=== PATIENT | female | born 1990 | race Caucasian/White ===

== ENCOUNTER 2018-08-26 13:52 | Emergency (ER) | payer OTHER ==
[~2018-08-26] VITALS: Wt 78.0 kg
[2018-08-26] MEDS ORDERED: CYCL10TA7 PO (16:17)
[2018-08-26] MEDS ORDERED: NAPR-688 PO (16:17)
--- NOTE | 2018-08-26 16:22 | ERD ---
ER Documentation Chief Complaint Chief Complaint RIGHT SIDED FACIAL PAIN X 2 DAYS HPI 28-year-old from presents for right-sided face pain x2 days. She states that she has 8 out of 10 pain when she opens her jaw. She states that she has 0 out of 10 pain without movement. The pain is described as a sharp pain, nonr adiating, worsening with movement and eating. She denies any fevers or chills. The pain is constant when she moves her jaw. No prior similar symptoms. She denies chest pain or shortness of breath. No significant past medical history. No other modifying factors noted. No treatments tried at home. ROS All systems reviewed and are negative except as per history of present illness. Medications Home Meds Active Scripts Cyclobenzaprine Hcl* (Cyclobenzaprine Hcl*) 10 Mg Tablet, 10 MG PO QHS for pain, #15 TAB Prov:KRYSTIAN CLANCY 08/26/18 Naproxen* (Naproxen*) 500 Mg Tablet, 500 MG PO BID PRN for PAIN, #30 TAB Prov:KRYSTIAN CLANCY DO 08/26/18 Allergies Allergies: Coded Allergies: No Known Allergy (Unverified , 08/26/18) PMhx/Soc History of Surgery: Yes (Hernia repair x2) Anesthesia Reaction: No Hx Alcohol Use: No Hx Substance Use: No Hx Tobacco Use: No Smoking Status: Never smoker FmHx Family History: No coronary disease Physical Exam Vitals Vital Signs Date Temp Pulse Resp B/P (MAP) Pulse Ox O2 O2 Flow FiO2 Time Delivery Rate 08/26/18 98.1 81 18 170/71 99 13:56 (104) Physical Exam Const: No acute distress Head: Atraumatic, there is tenderness patient over the right TMJ area Eyes: Normal Conjunctiva ENT: Normal External Ears, Nose and Mouth. Neck: Full range of motion. No meningismus. Resp: Clear to auscultation bilaterally Cardio: Regular rate and rhythm, no murmurs Skin: No petechiae or rashes Ext: No cyanosis, or edema Neur: Awake and alert Psych: Normal Mood and Affect Procedures/MDM Medical Decision Making: Differential diagnosis includes but not limited to TMJ dysfunction, fracture, muscle strain, ligamentous pain, dislocation Patient appeared well on physical exam. There was tenderness patient over the right TMJ area ED course: Facial x-ray was unremarkable, no foreign body, no fracture noted, no soft tissue abnormalities There is a possibility the patient may have TMJ dysfunction Low suspicion for fracture or dislocation. Prescription(s): Patient given prescription for supportive medication(s). Advised to follow-up with dentist Patient advised to follow up with PCP in 1-2 days. Patient advised to return to ED for new or worsening symptoms. Patient stable on discharge from the ED. Disclaimer: Inadvertent spelling and grammatical errors are likely due to EHR/dictation software use and do not reflect on the overall quality of patient care. Also, please note that the electronic time recorded on this note does not necessarily reflect the actual time of the patient encounter. Departure Diagnosis: Primary Impression: Right-sided face pain Condition: Fair Patient Instructions: Tmj Syndrome Referrals: [facility] YOU HAVE RECEIVED A MEDICAL SCREENING EXAM AND THE RESULTS INDICATE THAT YOU DO NOT HAVE A CONDITION THAT REQUIRES URGENT TREATMENT IN THE EMERGENCY DEPARTMENT. FURTHER EVALUATION AND TREATMENT OF YOUR CONDITION CAN WAIT UNTIL YOU ARE SEEN IN YOUR DOCTORS OFFICE WITHIN THE NEXT 1-2 DAYS. IT IS YOUR RESPONSIBILITY TO MAKE AN APPOINTMENT FOR FOLOW-UP CARE. IF YOU HAVE A PRIMARY DOCTOR --you should call your primary doctor and schedule an appointment IF YOU DO NOT HAVE A PRIMARY DOCTOR YOU CAN CALL OUR PHYSICIAN REFERRAL HOTLINE AT IF YOU CAN NOT AFFORD TO SEE A PHYSICIAN YOU CAN CHOSE FROM THE FOLLOWING [facility] [address] [facility]. [facility] [address] [facility] [facility] [address] [facility] [address] [facility]. [facility] [address] [facility]. [facility]. [address] Additional Instructions: Llame al doctor MAANA y nisa beth ROSALEE PARA DENTRO DE 1-2 [place].Dgale a la secretaria que nosotros le instruimos hacer esta rosalee.Avise o llame si sargent condicin se empeora antes de la rosalee. Regresa aqui si peor o no mejor. Follow up with dentist KRYSTIAN CLANCY DO August 26, 2018 16:22
[2018-08-26 16:33] VITALS: BP 103/65; PULSE 76; RESP 18
== END 2018-08-26 16:34 | disposition home or self-care (01) ==
LOC: FTE 13:52
DX: R51 Headache (principal)
CPT/HCPCS: 70140; Z7502